=== PATIENT | male | born 1960 | race Caucasian/White ===

== ENCOUNTER 2016-06-17 20:43 | Emergency (ER) | payer SELFPAY ==
--- NOTE | 2016-06-17 21:11 | ER Document Report ---
ED Medical Screen (RME) - General Stated Complaint: HEADACHE Time seen by provider: 21:06 Mode of Arrival: Ambulatory Information source: Patient Notes: 55-year-old smoker male history of hypertension complaining of a gradual onset of a right parietal headache Thursday night which causes some right eye pressure occasionally. The headache is 4/5. Thursday morning he noticed that he was having some swelling under his right mandible near where he had reconstructive surgery (accident) with pain that has been getting worse since Thursday. The pain radiated towards his right ear and he feels like there is some fullness in his right ear. No fever. History of migraines in the past which will be mostly on the right sides but also cause light sensitivity but he hasn't had those in years. I have greeted and performed a rapid initial assessment of this patient. A comprehensive ED assessment, evaluation of the patient, analysis of test results , and completion of the medical decision making process will be conducted by additional ED providers. Physical Exam - Vital signs Vitals: Temp Pulse Resp BP Pulse Ox 98.4 F 93 18 145/97 H 96 06/17/16 20:56 06/17/16 20:56 06/17/16 20:56 06/17/16 20:56 06/17/16 20:56 Course - Vital Signs Vital signs: Temp Pulse Resp BP Pulse Ox 98.4 F 93 18 145/97 H 96 06/17/16 20:56 06/17/16 20:56 06/17/16 20:56 06/17/16 20:56 06/17/16 20:56
[2016-06-17 21:36] LABS: ABSOLUTE EOSINOPHILS # (AUTO) 0.4 10^3/uL (0.0-0.6); ABSOLUTE LYMPHOCYTES (AUTO) 3.5 10^3/uL (0.5-4.7); ABSOLUTE MONOCYTES (AUTO) 0.8 10^3/uL (0.1-1.4); ABSOLUTE NEUT (AUTO) 9.3 10^3/uL (1.7-8.2); BASOPHILS % (AUTO) 0.1 % (0-2); EOSINOPHILS % (AUTO) 2.6 % (0-6); HEMATOCRIT 48.3 % (37.9-51.0); HEMOGLOBIN 16.5 g/dL (13.5-17.0); HGB HCT DIFFERENCE 1.2; MEAN CORPUSCULAR HEMOGLOBIN 29.4 pg (27.0-33.4); MEAN CORPUSCULAR HGB CONC 34.1 g/dL (32.0-36.0); MEAN CORPUSCULAR VOLUME 86 fl (80-97); MONOCYTES % (AUTO) 5.5 % (3-13); RED CELL DISTRIBUTION WIDTH 13.2 % (11.5-14.0); SEGMENTED NEUTROPHILS % (AUTO) 66.8 % (42-78)
[2016-06-17 21:48] LABS: ALANINE AMINOTRANSFERASE 22 U/L (21-72); ALKALINE PHOSPHATASE 108 U/L (38-126); ANION GAP 13 (5-19); ASPARTATE AMINO TRANSFERASE 17 U/L (17-59); BILIRUBIN,TOTAL 0.4 mg/dL (0.2-1.3); BLOOD UREA NITROGEN 18 mg/dL (7-20); CALCIUM 9.7 mg/dL (8.4-10.2); CARBON DIOXIDE 24 mmol/L (22-30); CHLORIDE 101 mmol/L (98-107); CREATININE RESULT 1.06 mg/dL (0.52-1.25); GLUCOSE 212 mg/dL (75-110); POTASSIUM 4.3 mmol/L (3.6-5.0); SODIUM 138.3 mmol/L (137-145)
[2016-06-18] MEDS ORDERED: KETOROLAC TROMETHAMINE INJ/PF 30 MG/1 ML SDV IV ONE (00:05)
[2016-06-18] MEDS ORDERED: DIPHENHYDRAMINE HCL 50 MG/ML VIAL IV ONE (00:05)
[2016-06-18] MEDS ORDERED: PROCHLORPERAZINE EDISYLATE INJ 10 MG/2 ML VIAL IV ONE (00:05)
--- NOTE | 2016-06-18 00:07 | ER Document Report ---
ED General - General Chief Complaint: Facial Swelling Stated Complaint: HEADACHE Mode of Arrival: Ambulatory Notes: Patient is a 55-year-old male with past medical history of migraine headaches who presents with 4 days of a right-sided headache. Describes the pain as a constant, throbbing, severe pain. States it was gradual in onset has been getting progressively worse since starting. He has tried aspirin and ibuprofen at home without any improvement. Notes lights, loud sounds, and physical activity worsened headache. States this feels similar to migraine headaches that he's had in the past. He is also having some right-sided jaw swelling and pain which he attributes to grinding his teeth which he notes he often does when he is having a migraine headache. He denies any associated weakness, numbness, chest pain, syncope, changes in vision, altered mental status or fever. He has not seen his primary care doctor regarding today's concerns. TRAVEL OUTSIDE OF THE [place] IN LAST 30 DAYS: No - Related Data Allergies/Adverse Reactions: Penicillins Allergy (Verified 06/17/16 21:12) Past Medical History - General Information source: Patient - Social History Smoking Status: Current Every Day Smoker Chew tobacco use (# tins/day): No Frequency of alcohol use: Occasional Drug Abuse: None Family History: Reviewed & Not Pertinent Patient has suicidal ideation: No Patient has homicidal ideation: No Renal/ Medical History: Denies: Hx Peritoneal Dialysis Review of Systems - Review of Systems Notes: Constitutional: Negative for fever. HENT: Negative for sore throat. Eyes: Negative for visual changes. Cardiovascular: Negative for chest pain. Respiratory: Negative for shortness of breath. Gastrointestinal: Negative for abdominal pain, vomiting or diarrhea. Genitourinary: Negative for dysuria. Musculoskeletal: Negative for back pain. Skin: Negative for rash. Neurological: Positive for headaches, negative for weakness or numbness. 10 point ROS negative except as marked above and in HPI. Physical Exam - Vital signs Vitals: Temp Pulse Resp BP Pulse Ox 98.4 F 93 18 145/97 H 96 06/17/16 20:56 06/17/16 20:56 06/17/16 20:56 06/17/16 20:56 06/17/16 20:56 Interpretation: Hypertensive Notes: PHYSICAL EXAMINATION: GENERAL: Appears mildly uncomfortable but in no acute distress HEAD: Atraumatic, normocephalic. EYES: Pupils equal round and reactive to light, extraocular movements intact, sclera anicteric, conjunctiva are normal. ENT: nares patent, oropharynx clear without exudates. TMs clear bilaterally without effusion or erythema. Moist mucous membranes. NECK: Normal range of motion, supple without lymphadenopathy LUNGS: Breath sounds clear to auscultation bilaterally and equal. No wheezes rales or rhonchi. HEART: Regular rate and rhythm without murmurs ABDOMEN: Soft, nontender, normoactive bowel sounds. No guarding, no rebound. No masses appreciated. EXTREMITIES: Normal range of motion, no pitting or edema. No cyanosis. NEUROLOGICAL: Right-sided facial droop. Tongue protrudes midline. Extraocular motions intact. Pupils are 2 mm and equally reactive. Normal speech, normal gait. 5 out of 5 strength in both the distal and proximal upper and lower extremities bilaterally. Sensation is grossly intact throughout. Finger to nose testing normal. Pronator drift normal. PSYCH: Normal mood, normal affect. SKIN: Warm, Dry, normal turgor, no rashes or lesions noted. Course - Re-evaluation Re-evalutation: 06/18/16 00:06 Presentation of a headache that appears to be most consistent with tension versus migrainous type headache. Headache was not maximal in onset, patient has no focal neurologic deficits (other than a baseline right-sided facial droop which patient states he always has), no nuchal rigidity, vital signs within normal limits, no papilledema, and patient is overall well in appearance. Based on clinical history and examination I do not suspect an acute subarachnoid hemorrhage, dural venous sinus thrombosis, acute meningitis, or intercranial mass. Moreover, patient does not have clinical history suggest acute temporal arteritis. Patient does complain of some right-sided jaw swelling where he had a reconstructive surgery done several years ago. He states this often happens after he's been grinding his teeth when he has a migraine headache I do not see any visible evidence of significant swelling. Oropharynx is widely patent. I do not suspect hardware infection, dental infection, blood wings angina, peritonsillar abscess or retropharyngeal abscess based on his exam and history. Of note, although I do not believe neuroimaging is indicated based on this patient's presentation a CT of the head was obtained in triage for unclear diagnostic consideration. This is noted to be normal. Will proceed with headache cocktail and reassess. 06/18/16 01:06 Patient has had complete resolution of his headache.At this time will discharge with return precautions and follow-up recommendations. Verbal discharge instructions given a the bedside and opportunity for questions given. Medication warnings reviewed. Patient is in agreement with this plan and has verbalized understanding of return precautions and the need for primary care follow-up in the next 24-72 hours. - Vital Signs Vital signs: Temp Pulse Resp BP Pulse Ox 97.9 F 83 16 156/103 H 98 06/18/16 00:29 06/18/16 00:29 06/18/16 00:29 06/18/16 00:29 06/18/16 00:29 - Laboratory Result Diagrams: 06/17/16 21:25 06/17/16 21:25 Laboratory results interpreted by me: 06/17/16 06/17/16 21:25 21:25 WBC 14.0 H RBC 5.60 H Absolute Neutrophils 9.3 H Glucose 212 H - Diagnostic Test Radiology reviewed: Image reviewed, Reports reviewed Radiology results interpreted by me: 06/18/16 01:07 CT head: No acute intracranial pathology Discharge - Discharge Clinical Impression: Essential hypertension Headache Qualifiers: Headache type: unspecified Headache chronicity pattern: acute headache Intractability: not intractable Qualified Code(s): R51 - Headache Condition: Good Disposition: HOME, SELF-CARE Additional Instructions: You were seen today for a migraine headache. Please follow-up with your primary care doctor regarding today's ED visit. Return to emergency department immediately if you develop a headache that gets to its maximum severity within 20 minutes of onset, you pass out, you develop weakness, numbness, changes in your vision, become unable to keep any fluids down for more than 12 hours, or develop a fever greater than 100.4 degrees Fahrenheit. If you develop a similar migraine headache in the future I recommend that you immediately take 600 mg of ibuprofen and 50 mg of Benadryl and go to sleep as quickly as possible. This can often prevent your migraine headache from becoming severe. You were seen today for blood pressure that was high. This is a long-term risk factor for multiple medical problems including heart attack and stroke. However, the blood pressure in of itself will not cause you to have an acute stroke or heart attack over the course of just several days or weeks. You need to have a gradual reduction of your blood pressure back to normal levels over the next several months in conjunction with your primary care physician. Return if you develop headache, weakness, numbness, chest pain, pass out, or have any other symptoms that are concerning to you. Prescriptions: Hydrochlorothiazide 25 mg PO DAILY #60 tablet
[2016-06-18 00:32] VITALS: BP 156/103
== END 2016-06-18 01:14 | disposition home or self-care (01) ==
LOC: ER 20:43
DX: R51 Headache (principal); R22.0 Localized swelling, mass and lump, head; F17.210 Nicotine dependence, cigarettes, uncomplicated
CPT/HCPCS: 99284; 96374; 96375; 36415; 85025; 80053; 70450; J1200; J1885; J0780

== ENCOUNTER 2016-09-10 18:17 | Emergency (ER) | payer SELFPAY ==
[2016-09-10 18:59] VITALS: BP 174/104
== END 2016-09-10 19:50 | disposition left against medical advice (07) ==
LOC: ER 18:17
DX: Z53.21 Procedure and treatment not carried out due to patient leaving prior to being seen by health care provider (principal)